=== PATIENT | female | born 1995 ===

== ENCOUNTER 2018-11-01 05:13 | Inpatient (IN) | payer MEDICAID ==
[2018-11-01] MEDS ORDERED: Sodium Chloride 0.9% 10 ML SDV IV PRN (05:14)
[2018-11-01] MEDS ORDERED: Citric Acid/Sodium Citrate Solution 30 ML Cup PO ONE (05:14)
[2018-11-01] MEDS ORDERED: Sodium Chloride 0.9% 10 ML Syringe FLUSH PRN (05:14)
[2018-11-01] MEDS ORDERED: Oxytocin/0.9 % Sodium Chloride 30 UNIT/500 ML BAG IV SCH (05:15)
[2018-11-01] MEDS: Lactated Ringers 1,000 ML IV SCH ×5 (05:49→16:36)
[2018-11-01] MEDS ORDERED: Clindamycin Phosphate in D5W 900 MG in Premix Bag 1 BAG IV ONE ×2 (07:30)
[2018-11-01] MEDS ORDERED: Morphine PF 10 MG/10 ML SDV ONE (07:42)
[2018-11-01] MEDS ORDERED: Acetaminophen/oxyCODONE 325-5 MG Tab PO PRN (07:55)
[2018-11-01] MEDS ORDERED: diphenhydrAMINE 50 MG/ML SDV IVPUSH PRN ×2 (07:55→09:41)
[2018-11-01] MEDS ORDERED: Ondansetron 4 MG/2 ML SDV IVPUSH PRN (07:55)
[2018-11-01] MEDS ORDERED: Naloxone 0.4 MG/ML Syringe IVPUSH PRN (07:55)
--- NOTE | 2018-11-01 07:55 | PCM.PREANE ---
Preanesthetic Assessment - Anesthesia/Transfusion/Family Hx Anesthesia History: No Prior Anesthesia Transfusion History: No Prior Transfusion(s) - Review of Systems General: No Symptoms Pulmonary: No Symptoms Cardiovascular: No Symptoms Gastrointestinal: No Symptoms Neurological: No Symptoms Other: Reports: None - Physical Assessment NPO Status Date: 11/01/18 NPO Status Time: 12:00 Pulse: 78 O2 Sat by Pulse Oximetry: 98 Respiratory Rate: 18 Blood Pressure: 124/68 Height: 1.65 m Weight: 77.111 kg ASA Class: 2 Mental Status: Alert & Oriented x3 Dentition: Reports: Normal Dentition Thyro-Mental Finger Breadths: 3 Mouth Opening Finger Breadths: 3 ROM/Head Extension: Full Lungs: Clear to Auscultation, Normal Respiratory Effort Cardiovascular: Regular Rate, Regular Rhythm - Lab Values: Laboratory Last Values WBC 7.75 K/uL (4.0-11.0) 11/01/18 05:50 RBC 3.49 M/uL (4.30-5.90) L 11/01/18 05:50 Hgb 9.2 g/dL (12.0-16.0) L 11/01/18 05:50 Hct 29.2 % (36.0-46.0) L 11/01/18 05:50 MCV 83.7 fL (80.0-98.0) 11/01/18 05:50 MCH 26.4 pg (27.0-32.0) L 11/01/18 05:50 MCHC 31.5 g/dL (31.0-37.0) 11/01/18 05:50 RDW Std Deviation 41.8 fl (28.0-62.0) 11/01/18 05:50 RDW Coeff of Anny 14 % (11.0-15.0) 11/01/18 05:50 Plt Count 300 K/uL (150-400) 11/01/18 05:50 MPV 10.40 fL (7.40-12.00) 11/01/18 05:50 Nucleated RBC % 0.0 /100WBC 11/01/18 05:50 Nucleated RBCs # 0 K/uL 11/01/18 05:50 Blood Type O POSITIVE 11/01/18 05:50 Antibody Screen NEGATIVE 11/01/18 05:50 - Allergies Allergies/Adverse Reactions: Allergies Allergy/AdvReac Type Severity Reaction Status Date / Time Pork/Porcine Containing Allergy Severe anaphylaxis Verified 11/01/18 06:18 Products Penicillins Allergy Fainting Verified 11/01/18 06:19 - Acknowledgements Anesthesia Type Planned: Spinal Pt an Appropriate Candidate for the Planned Anesthesia: Yes Alternatives and Risks of Anesthesia Discussed w Pt/Guardian: Yes Pt/Guardian Understands and Agrees with Anesthesia Plan: Yes PreAnesthesia Questionnaire Gastrointestinal History: Reports: Other (See Below) Other Gastrointestinal History: some heartburn during OUTREACH ANALYST History: Reports: Musculoskeletal History: Reports: Fracture Other Musculoskeletal History: hx of fx elbow - Infectious Disease History Infectious Disease History: Reports: None - SUBSTANCE USE Smoking Status *Q: Never Smoker Second Hand Smoke Exposure: No Recreational Drug Use History: No - HOME MEDS Home Medications: Home Meds PNV95/Ferrous Fumarate/FA [ Formula Tablet] 1 tab PO DAILY 10/28/18 [ History] - CURRENT (IN HOUSE) MEDS Current Meds: Current Medications Lactated Ringer's (Ringers, Lactated) 1,000 mls @ 500 mls/hr IV BOLUS ANTONI Last Admin: 11/01/18 07:35 Dose: 999 mls/hr Oxytocin/Sodium Chloride (Oxytocin 30 Unit/500 Ml-Ns) 30 unit in 500 mls @ 250 mls/hr IV TITRATE ANTONI Clindamycin Phosphate 900 mg/ (Premix) 50 mls @ 100 mls/hr IV ONETIME ONE Stop: 11/01/18 07:59 Last Admin: 11/01/18 07:39 Dose: 100 mls/hr Gentamicin Sulfate 80 mg/ (Sodium Chloride) 102 mls @ 196.154 mls/hr IV ONETIME ONE Stop: 11/01/18 08:01 Sodium Chloride (Saline Flush) 10 ml FLUSH ASDIRECTED PRN PRN Reason: Keep Vein Open Sodium Chloride (Saline Flush) 2.5 ml FLUSH ASDIRECTED PRN PRN Reason: Keep Vein Open Sodium Chloride (Normal Saline) 10 ml IV ASDIRECTED PRN PRN Reason: IV Use Discontinued Medications Citric Acid/Sodium Citrate (Bicitra Solution) 30 ml PO ONETIME ONE Stop: 11/01/18 05:15 Morphine Sulfate (Duramorph Pf) Confirm Administered Dose 10 mg .ROUTE .STK-MED ONE Stop: 11/01/18 07:43
[2018-11-01] MEDS ORDERED: Ketorolac 30 MG/ML SDV ONE (07:57)
[2018-11-01] MEDS ORDERED: Dexamethasone 4 MG/ML 5 ML MDV ONE (07:57)
[2018-11-01] MEDS ORDERED: Octyl 2-Cyanoacrylate 1 Tube ONE (08:00)
[2018-11-01] MEDS ORDERED: Oxytocin 10 Units/1 ML SDV ONE ×2 (08:36→09:33)
[2018-11-01] MEDS ORDERED: Lanolin 100% Cream 7 GM Tube TOP PRN (09:41)
[2018-11-01] MEDS ORDERED: Bisacodyl 10 MG Supp RECTAL PRN (09:41)
[2018-11-01] MEDS ORDERED: Ketorolac 30 MG/ML SDV IVPUSH SCH (09:45)
--- NOTE | 2018-11-01 09:45 | PCM.OPNOTE ---
- General Post-Op/Procedure Note Date of Surgery/Procedure: 11/01/18 Operative Procedure(s): Primary lower transverse Findings: Live female delivered at 832am , 8/9 weight 4670g Pre Op Diagnosis: Breech presentation Post-Op Diagnosis: Breech Presentation Anesthesia Technique: Epidural Primary Surgeon: Azeb Dasilva Leasing Assistant: Dilma Pathology: placenta Fluid Replacement, Intraop: 3,000 Output, Urine Amount: 225 EBL in mLs: 900 Complications: None Condition: Good Free Text/Narrative:: Intake & Output 10/31/18 11/01/18 11/01/18 22:59 06:59 14:59 Intake Total 1000 Balance 1000
--- NOTE | 2018-11-01 10:34 | PCM.POSTAN ---
POST ANESTHESIA ASSESSMENT - MENTAL STATUS Mental Status: Alert, Oriented - RESPIRATORY Respiratory Status: Respiratory Rate WNL, Airway Patent, O2 Saturation Stable - CARDIOVASCULAR CV Status: Pulse Rate WNL, Blood Pressure Stable (after fluid bolus) - GASTROINTESTINAL GI Status: [place] - POST OP HYDRATION Hydration Status: Adequate & Stable - OBSERVATIONS Free Text/Narrative:: T7 spinal level. will remain recumbant, nurses asked to use nubain for pruritis and/or ponv
[2018-11-01] MEDS ORDERED: Metoclopramide 10 MG/2 ML SDV IVPUSH PRN (11:11)
[2018-11-01] MEDS: Nalbuphine 10 MG/1 ML Vial IVPUSH PRN ×2 (13:19→21:06)
[2018-11-01] MEDS: Ondansetron 4 MG/2 ML SDV IVPUSH PRN ×3 (13:25→22:23)
[2018-11-01] MEDS: Ketorolac 30 MG/ML SDV IVPUSH SCH ×2 (14:12→20:02)
[2018-11-01] MEDS ORDERED: Methylergonovine 0.2 MG/1 ML Amp ONE (15:50)
[2018-11-01] MEDS: Docusate Sodium 100 MG Cap PO SCH (21:18)
[2018-11-01] MEDS: Sodium Chloride 0.9% 2.5 ML Syringe FLUSH PRN ×2 (23:27→23:38)
[2018-11-01] MEDS: fentaNYL 100 MCG/2 ML SDV IVPUSH PRN ×2 (23:27→23:34)
[2018-11-02] MEDS: Ketorolac 30 MG/ML SDV IVPUSH SCH ×3 (02:07→14:37)
[2018-11-02] MEDS: Sodium Chloride 0.9% 2.5 ML Syringe FLUSH PRN ×4 (02:08→05:27)
[2018-11-02] MEDS: Nalbuphine 10 MG/1 ML Vial IVPUSH PRN (04:18)
[2018-11-02] MEDS: fentaNYL 100 MCG/2 ML SDV IVPUSH PRN ×2 (05:09→05:23)
[2018-11-02] MEDS: Lactated Ringers 1,000 ML IV SCH ×2 (05:27→05:30)
--- NOTE | 2018-11-02 08:54 | PCM.PNPP ---
- General Info Date of Service: 11/02/18 Subjective Update: 22yo P1 s/p Primary LTCS POD1 Complains of dizziness , Anemia h/h 6.8/21.3 Normal Urine output , Normal vital signs Had light diet which she tolerated Dobbins in place Functional Status: Reports: Pain Controlled, Tolerating Diet - Review of Systems General: Reports: No Symptoms HEENT: Reports: No Symptoms Pulmonary: Reports: No Symptoms Cardiovascular: Reports: No Symptoms Gastrointestinal: Reports: No Symptoms Genitourinary: Reports: No Symptoms Musculoskeletal: Reports: No Symptoms Skin: Reports: No Symptoms Neurological: Reports: No Symptoms Psychiatric: Reports: No Symptoms - General Info Date of Service: 11/02/18 - Patient Data Vital Signs - Most Recent: Last Vital Signs Temp 36.1 C 11/02/18 04:00 Pulse 73 11/02/18 06:00 Resp 16 11/02/18 06:00 BP 108/71 11/02/18 04:00 Pulse Ox 97 11/02/18 06:00 Weight - Most Recent: 77.111 kg I&O - Last 24 Hours: Intake & Output 11/01/18 11/02/18 11/02/18 22:59 06:59 14:59 Output Total 400 825 Balance -400 -825 Lab Results - Last 24 Hours: Laboratory Results - last 24 hr 11/01/18 11/01/18 11/02/18 Range/Units 05:50 14:10 05:45 Hgb 8.7 L 6.8 L (12.0-16.0) g/dL Hct 26.9 L 21.3 L (36.0-46.0) % Blood Type O POSITIVE Antibody Screen NEGATIVE Crossmatch See Detail Med Orders - Current: Current Medications Bisacodyl (Dulcolax) 10 mg RECTAL ONETIME PRN PRN Reason: Constipation Diphenhydramine HCl (Benadryl) 25 mg IVPUSH Q6H PRN PRN Reason: Itching or Nausea Last Admin: 11/02/18 02:13 Dose: 25 mg Docusate Sodium (Colace) 100 mg PO BID ANTONI Last Admin: 11/01/18 21:18 Dose: Not Given Emollient Ointment (Lansinoh Hpa) 0 gm TOP ASDIRECTED PRN PRN Reason: Sore Nipples Lactated Ringer's (Ringers, Lactated) 1,000 mls @ 500 mls/hr IV BOLUS [facility] Last Admin: 11/01/18 16:36 Dose: 999 mls/hr Oxytocin/Sodium Chloride (Oxytocin 30 Unit/500 Ml-Ns) 30 unit in 500 mls @ 250 mls/hr IV TITRATE [facility] Lactated Ringer's (Ringers, Lactated) 1,000 mls @ 125 mls/hr IV ASDIRECTED [facility] Last Admin: 11/02/18 05:30 Dose: 150 mls/hr Ibuprofen (Motrin) 800 mg PO Q8H PRN PRN Reason: mild pain or fever Ketorolac Tromethamine (Toradol) 30 mg IVPUSH Q6H [facility] Stop: 11/02/18 14:16 Last Admin: 11/02/18 08:15 Dose: 30 mg Metoclopramide HCl (Reglan) 10 mg IVPUSH Q8H PRN PRN Reason: Nausea/Vomiting Last Admin: 11/01/18 11:37 Dose: 10 mg Nalbuphine HCl (Nubain) 5 mg IVPUSH ASDIRECTED PRN PRN Reason: Itching Last Admin: 11/02/18 04:18 Dose: 5 mg Ondansetron HCl (Zofran) 4 mg IVPUSH Q6H PRN PRN Reason: Nausea Ondansetron HCl (Zofran) 4 mg IVPUSH Q4H PRN PRN Reason: Nausea/Vomiting Last Admin: 11/01/18 22:23 Dose: 4 mg Oxycodone/Acetaminophen (Percocet 325-5 Mg) 2 tab PO Q6H PRN PRN Reason: Pain (moderate 4-6) Oxycodone/Acetaminophen (Percocet 325-5 Mg) 1 tab PO Q4H PRN PRN Reason: Pain (moderate 4-6) Oxycodone/Acetaminophen (Percocet 325-5 Mg) 2 tab PO Q4H PRN PRN Reason: Pain (moderate 4-6) Sodium Chloride (Saline Flush) 10 ml FLUSH ASDIRECTED PRN PRN Reason: Keep Vein Open Sodium Chloride (Saline Flush) 2.5 ml FLUSH ASDIRECTED PRN PRN Reason: Keep Vein Open Last Admin: 11/02/18 05:27 Dose: 2.5 ml Sodium Chloride (Normal Saline) 10 ml IV ASDIRECTED PRN PRN Reason: IV Use Discontinued Medications Citric Acid/Sodium Citrate (Bicitra Solution) 30 ml PO ONETIME ONE Stop: 11/01/18 05:15 Last Admin: 11/01/18 23:19 Dose: Not Given Dexamethasone (Dexamethasone) Confirm Administered Dose 20 mg .ROUTE .STK-MED ONE Stop: 11/01/18 07:58 Diphenhydramine HCl (Benadryl) 25 mg IVPUSH Q4H PRN PRN Reason: Itching Stop: 11/02/18 07:55 Fentanyl (Sublimaze) 50 mcg IVPUSH Q1H PRN PRN Reason: Pain (severe 7-10) Last Admin: 11/02/18 05:23 Dose: 50 mcg Clindamycin Phosphate 900 mg/ (Premix) 50 mls @ 100 mls/hr IV ONETIME ONE Stop: 11/01/18 07:59 Last Admin: 11/01/18 07:39 Dose: 100 mls/hr Gentamicin Sulfate 80 mg/ (Sodium Chloride) 102 mls @ 196.154 mls/hr IV ONETIME ONE Stop: 11/01/18 08:01 Last Admin: 11/01/18 23:19 Dose: Not Given Ketorolac Tromethamine (Toradol) Confirm Administered Dose 30 mg .ROUTE .STK- MED ONE Stop: 11/01/18 07:58 Ketorolac Tromethamine (Toradol) 30 mg IVPUSH Q6H [facility] Stop: 11/02/18 09:46 Methylergonovine Maleate (Methergine) Confirm Administered Dose 0.2 mg .ROUTE .STK-MED ONE Stop: 11/01/18 15:51 Morphine Sulfate (Duramorph Pf) Confirm Administered Dose 10 mg .ROUTE .STK-MED ONE Stop: 11/01/18 07:43 Naloxone HCl (Narcan) 0.1 mg IVPUSH ONETIME PRN PRN Reason: Respiratory Depression Stop: 11/02/18 07:55 Octyl Cyanoacrylate (Dermabond Advance) Confirm Administered Dose 1 applic .ROUTE .STK-MED ONE Stop: 11/01/18 08:01 Oxytocin (Pitocin) Confirm Administered Dose 30 unit .ROUTE .STK-MED ONE Stop: 11/01/18 08:37 Oxytocin (Pitocin) Confirm Administered Dose 30 unit .ROUTE .STK-MED ONE Stop: 11/01/18 09:34 - Interaction Support Person: - Recovery Exam Fundal Tone: Firm Fundal Level: 1 Fingerbreadths Below Umbilicus Fundal Placement: Midline Lochia Amount: Scant Lochia Color: Rubra/Red Perineum Description: Intact, Minimal Bruising/Swelling Episiotomy/Laceration: None Bladder Status: Indwelling Catheter in Place Urinary Elimination: Indwelling Catheter - Exam General: Alert, Lethargic HEENT: Pupils Equal Neck: Supple Lungs: Clear to Auscultation Cardiovascular: Regular Rate GI/Abdominal Exam: Normal Bowel Sounds Extremities: Normal Inspection Wound/Incisions: Dressing Dry and Intact Neurological: No New Focal Deficit Psy/Mental Status: Alert - Problem List & Annotations (1) delivery delivered SNOMED Code(s): 550114680 Code(s): O82 - ENCOUNTER FOR DELIVERY WITHOUT INDICATION Status: Acute Current Visit: Yes - Problem List Review Problem List Initiated/Reviewed/Updated: Yes - My Orders Last 24 Hours: My Active Orders 11/01/18 09:41 Ambulate [RC] PER UNIT ROUTINE Antiembolic Devices [RC] PER UNIT ROUTINE Communication Order [RC] PER UNIT ROUTINE Communication Order [RC] PER UNIT ROUTINE Communication Order [RC] Per Unit Routine May Shower [RC] ASDIRECTED Notify Provider Intake and Out [RC] ASDIRECTED Notify Provider Vital Signs [RC] ASDIRECTED RT Incentive Spirometry [RC] Q2HWA Acetaminophen/oxyCODONE [Percocet 325-5 MG] 1 tab PO Q4H PRN Acetaminophen/oxyCODONE [Percocet 325-5 MG] 2 tab PO Q4H PRN Bisacodyl [Dulcolax] 10 mg RECTAL ONETIME PRN Ibuprofen [Motrin] 800 mg PO Q8H PRN Lanolin [Lansinoh HPA] See Dose Instructions TOP ASDIRECTED PRN Ondansetron [Zofran] 4 mg IVPUSH Q4H PRN diphenhydrAMINE [Benadryl] 25 mg IVPUSH Q6H PRN Assess Lochia [WOMSER] Per Unit Routine Assess Uterine Involution [WOMSER] Per Unit Routine Breast Pump [WOMSER] Per Unit Routine Peripheral IV Discontinue [OM.PC] Routine Sequential Compression Device [OM.PC] Per Unit Routine 11/01/18 09:45 Lactated Ringers [Ringers, Lactated] 1,000 ml IV ASDIRECTED 11/01/18 11:11 Metoclopramide [Reglan] 10 mg IVPUSH Q8H PRN 11/01/18 14:15 Ketorolac [Toradol] 30 mg IVPUSH Q6H 11/01/18 21:00 Docusate Sodium [Colace] 100 mg PO BID 11/02/18 07:12 Transfuse RBC [Transfuse Red Blood Cells] [COMM] Stat 11/02/18 07:15 RED BLOOD CELLS LP [BBK] Routine - Assessment Assessment:: 22yo P2 s/p LTCS anemia , to recieve 3UPRBC pending - Plan Plan:: Transfuse 3UPRBC Venodynes Can remove dobbins after transfusion Posttransfusion CBC tomorrow
[2018-11-02] MEDS: Acetaminophen/oxyCODONE 325-5 MG Tab PO PRN ×3 (09:18→21:04)
[2018-11-02] MEDS: Docusate Sodium 100 MG Cap PO SCH ×2 (09:21→21:05)
--- NOTE | 2018-11-02 10:12 | PCM48HPAN ---
Post Anesthesia Note - EVALUATION WITHIN 48HRS OF ANESTHETIC Vital Signs in Normal Range: Yes Patient Participated in Evaluation: Yes Respiratory Function Stable: Yes Airway Patent: Yes Cardiovascular Function Stable: Yes Hydration Status Stable: Yes Pain Control Satisfactory: Yes Nausea and Vomiting Control Satisfactory: Yes Mental Status Recovered: Yes Pulse Rate: 78 Resp Rate: 15 Temperature: 97.7 F Blood Pressure: 124/68
--- NOTE | 2018-11-02 10:57 | OR ---
SURGEON: LINDA WILLOUGHBY DATE OF PROCEDURE: 11/01/2018 PREOPERATIVE DIAGNOSIS: 22-year-old, G1, P0, at 39 weeks with breech presentation. POSTOPERATIVE DIAGNOSIS: 22-year-old, G1, P0, at 39 weeks with breech presentation. PROCEDURE: Primary lower segment transverse section. IV FLUIDS: 3000. ESTIMATED BLOOD LOSS: 900. URINE OUTPUT: 225. NOTES AND FINDING: A live female delivered in breech position at 8:32am. score was 8 and 9. Weight was 4670 g. BRIEF HISTORY: She was 22, G1, P0, who had a low-risk care. She had GCT negative. However, she had macrosomia with EFW greater than 95%. The patient was offered ECV versus primary . The patient wanted the primary and decided to proceed. PROCEDURE IN DETAIL: The patient was taken to the operating room where spinal anesthesia was performed without difficulty. She was prepared and draped in the dorsal supine position with a leftward tilt. A Pfannenstiel skin incision was made with a scalpel and carried down to the fascia with the Bovie. The fascia was incised and extended laterally. The fascia was from the rectus muscles superiorly and inferiorly. Also, the rectus muscle was in the midline down to the level of the pubic symphysis. Peritoneum was entered in bluntly. The Cedric O retractor was placed to expose the lower uterine segment. The bladder flap was created. The lower uterine incision was made and was extended manually. The fetus was in breech presentation, was delivered by breech delivery all the way to the shoulder, then it was rotated. Anterior arm was delivered, then the posterior arm was delivered, and the head was delivered without any difficulty. The cord was clamped and cut. The infant was handed over to the awaiting med care manager. Then, the placenta was delivered without any difficulty. The uterus was cleaned with moist laparotomy sponges. The uterus was sutured in 2 layers, first layer with 0 Vicryl and second layer with 0 Monocryl. The gutters were cleaned with moist laparotomy sponges. The Cedric retractor was removed. The uterine incision was inspected again, was noted to be hemostatic. Peritoneum was closed. Rectus muscle was apposed also. The fascia was closed with 0 Vicryl and the skin was closed with 3-0 Monocryl on a Samson needle. All instrument and pad counts were correct x2. The patient tolerated the procedure well and was taken to the recovery room in stable condition. TRISTAN KUMARI /[id number] MTDD
[2018-11-02] MEDS: Ibuprofen 800 MG Tab PO PRN (22:50)
[2018-11-03] MEDS: Acetaminophen/oxyCODONE 325-5 MG Tab PO PRN ×5 (01:00→22:19)
[2018-11-03] MEDS: Ibuprofen 800 MG Tab PO PRN (06:51)
--- NOTE | 2018-11-03 16:56 | PCM.PNPP ---
- General Info Date of Service: 11/03/18 Subjective Update: 22yo P1 s/p Primary LTCS with aneamia s/p 3UPRBC Posttransfusion H/H 9.5/29.5 Patient feels much better now , She is ambulating , voiding , tolerating regular diet and breastfeedng Functional Status: Reports: Pain Controlled, Tolerating Diet, Ambulating, Urinating - Review of Systems General: Reports: No Symptoms HEENT: Reports: No Symptoms Pulmonary: Reports: No Symptoms Cardiovascular: Reports: No Symptoms Gastrointestinal: Reports: No Symptoms Genitourinary: Reports: No Symptoms Musculoskeletal: Reports: No Symptoms Skin: Reports: No Symptoms Neurological: Reports: No Symptoms Psychiatric: Reports: No Symptoms - General Info Date of Service: 11/03/18 - Patient Data Vital Signs - Most Recent: Last Vital Signs Temp 36.4 C 11/03/18 07:07 Pulse 63 11/03/18 07:07 Resp 16 11/03/18 07:07 BP 104/56 L 11/03/18 07:07 Pulse Ox 98 11/03/18 07:07 Weight - Most Recent: 77.111 kg I&O - Last 24 Hours: Intake & Output 11/03/18 11/03/18 11/03/18 06:59 14:59 22:59 Intake Total 1000 Output Total 1200 Balance -200 Lab Results - Last 24 Hours: Laboratory Results - last 24 hr 11/03/18 Range/Units 06:02 WBC 8.76 (4.0-11.0) K/uL RBC 3.52 L (4.30-5.90) M/uL Hgb 9.5 L (12.0-16.0) g/dL Hct 29.5 L (36.0-46.0) % MCV 83.8 (80.0-98.0) fL MCH 27.0 (27.0-32.0) pg MCHC 32.2 (31.0-37.0) g/dL RDW Std Deviation 43.6 (28.0-62.0) fl RDW Coeff of Anny 14 (11.0-15.0) % Plt Count 231 (150-400) K/uL MPV 10.40 (7.40-12.00) fL Neut % (Auto) 62.1 (48.0-80.0) % Lymph % (Auto) 25.0 (16.0-40.0) % Nolan % (Auto) 11.8 (0.0-15.0) % Eos % (Auto) 0.9 (0.0-7.0) % Baso % (Auto) 0.2 (0.0-1.5) % Neut # (Auto) 5.4 (1.4-5.7) K/uL Lymph # (Auto) 2.2 (0.6-2.4) K/uL Nolan # (Auto) 1.0 H (0.0-0.8) K/uL Eos # (Auto) 0.1 (0.0-0.7) K/uL Baso # (Auto) 0.0 (0.0-0.1) K/uL Nucleated RBC % 0.0 /100WBC Nucleated RBCs # 0 K/uL Med Orders - Current: Current Medications Bisacodyl (Dulcolax) 10 mg RECTAL ONETIME PRN PRN Reason: Constipation Diphenhydramine HCl (Benadryl) 25 mg IVPUSH Q6H PRN PRN Reason: Itching or Nausea Last Admin: 11/02/18 02:13 Dose: 25 mg Docusate Sodium (Colace) 100 mg PO BID [facility] Last Admin: 11/02/18 21:05 Dose: 100 mg Emollient Ointment (Lansinoh Hpa) 0 gm TOP ASDIRECTED PRN PRN Reason: Sore Nipples Lactated Ringer's (Ringers, Lactated) 1,000 mls @ 500 mls/hr IV BOLUS [facility] Last Admin: 11/01/18 16:36 Dose: 999 mls/hr Oxytocin/Sodium Chloride (Oxytocin 30 Unit/500 Ml-Ns) 30 unit in 500 mls @ 250 mls/hr IV TITRATE [facility] Lactated Ringer's (Ringers, Lactated) 1,000 mls @ 125 mls/hr IV ASDIRECTED [facility] Last Admin: 11/02/18 05:30 Dose: 150 mls/hr Ibuprofen (Motrin) 800 mg PO Q8H PRN PRN Reason: mild pain or fever Last Admin: 11/03/18 06:51 Dose: 800 mg Metoclopramide HCl (Reglan) 10 mg IVPUSH Q8H PRN PRN Reason: Nausea/Vomiting Last Admin: 11/01/18 11:37 Dose: 10 mg Nalbuphine HCl (Nubain) 5 mg IVPUSH ASDIRECTED PRN PRN Reason: Itching Last Admin: 11/02/18 04:18 Dose: 5 mg Ondansetron HCl (Zofran) 4 mg IVPUSH Q6H PRN PRN Reason: Nausea Ondansetron HCl (Zofran) 4 mg IVPUSH Q4H PRN PRN Reason: Nausea/Vomiting Last Admin: 11/01/18 22:23 Dose: 4 mg Oxycodone/Acetaminophen (Percocet 325-5 Mg) 2 tab PO Q6H PRN PRN Reason: Pain (moderate 4-6) Last Admin: 11/02/18 13:32 Dose: 2 tab Oxycodone/Acetaminophen (Percocet 325-5 Mg) 1 tab PO Q4H PRN PRN Reason: Pain (moderate 4-6) Last Admin: 11/02/18 09:18 Dose: 1 tab Oxycodone/Acetaminophen (Percocet 325-5 Mg) 2 tab PO Q4H PRN PRN Reason: Pain (moderate 4-6) Last Admin: 11/03/18 12:59 Dose: 2 tab Sodium Chloride (Saline Flush) 10 ml FLUSH ASDIRECTED PRN PRN Reason: Keep Vein Open Sodium Chloride (Saline Flush) 2.5 ml FLUSH ASDIRECTED PRN PRN Reason: Keep Vein Open Last Admin: 11/02/18 05:27 Dose: 2.5 ml Sodium Chloride (Normal Saline) 10 ml IV ASDIRECTED PRN PRN Reason: IV Use Discontinued Medications Citric Acid/Sodium Citrate (Bicitra Solution) 30 ml PO ONETIME ONE Stop: 11/01/18 05:15 Last Admin: 11/01/18 23:19 Dose: Not Given Dexamethasone (Dexamethasone) Confirm Administered Dose 20 mg .ROUTE .STK-MED ONE Stop: 11/01/18 07:58 Diphenhydramine HCl (Benadryl) 25 mg IVPUSH Q4H PRN PRN Reason: Itching Stop: 11/02/18 07:55 Fentanyl (Sublimaze) 50 mcg IVPUSH Q1H PRN PRN Reason: Pain (severe 7-10) Last Admin: 11/02/18 05:23 Dose: 50 mcg Clindamycin Phosphate 900 mg/ (Premix) 50 mls @ 100 mls/hr IV ONETIME ONE Stop: 11/01/18 07:59 Last Admin: 11/01/18 07:39 Dose: 100 mls/hr Gentamicin Sulfate 80 mg/ (Sodium Chloride) 102 mls @ 196.154 mls/hr IV ONETIME ONE Stop: 11/01/18 08:01 Last Admin: 11/01/18 23:19 Dose: Not Given Ketorolac Tromethamine (Toradol) Confirm Administered Dose 30 mg .ROUTE .STK- MED ONE Stop: 11/01/18 07:58 Ketorolac Tromethamine (Toradol) 30 mg IVPUSH Q6H [facility] Stop: 11/02/18 09:46 Ketorolac Tromethamine (Toradol) 30 mg IVPUSH Q6H [facility] Stop: 11/02/18 14:16 Last Admin: 11/02/18 14:37 Dose: Not Given Methylergonovine Maleate (Methergine) Confirm Administered Dose 0.2 mg .ROUTE .STK-MED ONE Stop: 11/01/18 15:51 Morphine Sulfate (Duramorph Pf) Confirm Administered Dose 10 mg .ROUTE .STK-MED ONE Stop: 11/01/18 07:43 Naloxone HCl (Narcan) 0.1 mg IVPUSH ONETIME PRN PRN Reason: Respiratory Depression Stop: 11/02/18 07:55 Octyl Cyanoacrylate (Dermabond Advance) Confirm Administered Dose 1 applic .ROUTE .STK-MED ONE Stop: 11/01/18 08:01 Oxytocin (Pitocin) Confirm Administered Dose 30 unit .ROUTE .STK-MED ONE Stop: 11/01/18 08:37 Oxytocin (Pitocin) Confirm Administered Dose 30 unit .ROUTE .STK-MED ONE Stop: 11/01/18 09:34 - Interaction Support Person: - Recovery Exam Fundal Tone: Firm Fundal Level: 1 Fingerbreadths Below Umbilicus Fundal Placement: Midline Lochia Amount: Scant Lochia Color: Rubra/Red Perineum Description: Edematous Episiotomy/Laceration: None Bladder Status: Voiding Urinary Elimination: Voided Other Urinary Elimination, : has not voided since cath removal at 1855 - Exam General: Alert HEENT: Pupils Equal Neck: Supple Lungs: Clear to Auscultation Cardiovascular: Regular Rate, Regular Rhythm GI/Abdominal Exam: Normal Bowel Sounds Extremities: Normal Inspection Wound/Incisions: Dressing Dry and Intact Neurological: No New Focal Deficit Psy/Mental Status: Alert, Normal Affect - Problem List & Annotations (1) delivery delivered SNOMED Code(s): 502882181 Code(s): O82 - ENCOUNTER FOR DELIVERY WITHOUT INDICATION Status: Acute Current Visit: Yes - Problem List Review Problem List Initiated/Reviewed/Updated: Yes - Assessment Assessment:: 22yo P1 s/p Primary LTCS with aneamia s/p 3UPRBC h/h 9.5/29.5 - Plan Plan:: Pain control as needed Venodyne in Bed Encourage more ambulation Incentive spirometry Discharge home tomorrow
[2018-11-03] MEDS: Docusate Sodium 100 MG Cap PO SCH (22:19)
[2018-11-04] MEDS: Acetaminophen/oxyCODONE 325-5 MG Tab PO PRN ×3 (03:43→12:41)
[2018-11-04] MEDS: Ibuprofen 800 MG Tab PO PRN (08:16)
[2018-11-04] MEDS ORDERED: Iron Polysaccharides Complex 150 MG Cap PO SCH (09:00)
--- NOTE | 2018-11-04 09:04 | PCM.PNPP ---
- General Info Date of Service: 11/04/18 Subjective Update: 22yo P1 s/p Primary LTCS with aneamia s/p 3UPRBC , POD3 Posttransfusion H/H 9.5/29.5 Patient feels much better now , She is ambulating , voiding , tolerating regular diet and breastfeedng Functional Status: Reports: Pain Controlled, Tolerating Diet, Ambulating, Urinating - Review of Systems General: Reports: No Symptoms HEENT: Reports: No Symptoms Pulmonary: Reports: No Symptoms Cardiovascular: Reports: No Symptoms Gastrointestinal: Reports: No Symptoms Genitourinary: Reports: No Symptoms Musculoskeletal: Reports: No Symptoms Skin: Reports: No Symptoms Neurological: Reports: No Symptoms - General Info Date of Service: 11/04/18 - Patient Data Vital Signs - Most Recent: Last Vital Signs Temp 36.3 C 11/04/18 07:23 Pulse 71 11/04/18 07:23 Resp 16 11/04/18 07:23 BP 116/73 11/04/18 07:23 Pulse Ox 96 11/04/18 07:23 Weight - Most Recent: 77.111 kg Lab Results - Last 24 Hours: Laboratory Results - last 24 hr 11/03/18 Range/Units 18:46 Hgb 9.4 L (12.0-16.0) g/dL Hct 28.9 L (36.0-46.0) % Med Orders - Current: Current Medications Bisacodyl (Dulcolax) 10 mg RECTAL ONETIME PRN PRN Reason: Constipation Diphenhydramine HCl (Benadryl) 25 mg IVPUSH Q6H PRN PRN Reason: Itching or Nausea Last Admin: 11/02/18 02:13 Dose: 25 mg Docusate Sodium (Colace) 100 mg PO BID ANTONI Last Admin: 11/03/18 22:19 Dose: 100 mg Emollient Ointment (Lansinoh Hpa) 0 gm TOP ASDIRECTED PRN PRN Reason: Sore Nipples Lactated Ringer's (Ringers, Lactated) 1,000 mls @ 500 mls/hr IV BOLUS [facility] Last Admin: 11/01/18 16:36 Dose: 999 mls/hr Oxytocin/Sodium Chloride (Oxytocin 30 Unit/500 Ml-Ns) 30 unit in 500 mls @ 250 mls/hr IV TITRATE [facility] Lactated Ringer's (Ringers, Lactated) 1,000 mls @ 125 mls/hr IV ASDIRECTED ANTONI Last Admin: 11/02/18 05:30 Dose: 150 mls/hr Ibuprofen (Motrin) 800 mg PO Q8H PRN PRN Reason: mild pain or fever Last Admin: 11/04/18 08:16 Dose: 800 mg Metoclopramide HCl (Reglan) 10 mg IVPUSH Q8H PRN PRN Reason: Nausea/Vomiting Last Admin: 11/01/18 11:37 Dose: 10 mg Nalbuphine HCl (Nubain) 5 mg IVPUSH ASDIRECTED PRN PRN Reason: Itching Last Admin: 11/02/18 04:18 Dose: 5 mg Ondansetron HCl (Zofran) 4 mg IVPUSH Q6H PRN PRN Reason: Nausea Ondansetron HCl (Zofran) 4 mg IVPUSH Q4H PRN PRN Reason: Nausea/Vomiting Last Admin: 11/01/18 22:23 Dose: 4 mg Oxycodone/Acetaminophen (Percocet 325-5 Mg) 2 tab PO Q6H PRN PRN Reason: Pain (moderate 4-6) Last Admin: 11/02/18 13:32 Dose: 2 tab Oxycodone/Acetaminophen (Percocet 325-5 Mg) 1 tab PO Q4H PRN PRN Reason: Pain (moderate 4-6) Last Admin: 11/02/18 09:18 Dose: 1 tab Oxycodone/Acetaminophen (Percocet 325-5 Mg) 2 tab PO Q4H PRN PRN Reason: Pain (moderate 4-6) Last Admin: 11/04/18 08:18 Dose: 2 tab Polysaccharide Iron Complex (Ferrex 150) 150 mg PO DAILY ANTONI Sodium Chloride (Saline Flush) 10 ml FLUSH ASDIRECTED PRN PRN Reason: Keep Vein Open Sodium Chloride (Saline Flush) 2.5 ml FLUSH ASDIRECTED PRN PRN Reason: Keep Vein Open Last Admin: 11/02/18 05:27 Dose: 2.5 ml Sodium Chloride (Normal Saline) 10 ml IV ASDIRECTED PRN PRN Reason: IV Use Discontinued Medications Citric Acid/Sodium Citrate (Bicitra Solution) 30 ml PO ONETIME ONE Stop: 11/01/18 05:15 Last Admin: 11/01/18 23:19 Dose: Not Given Dexamethasone (Dexamethasone) Confirm Administered Dose 20 mg .ROUTE .STK-MED ONE Stop: 11/01/18 07:58 Diphenhydramine HCl (Benadryl) 25 mg IVPUSH Q4H PRN PRN Reason: Itching Stop: 11/02/18 07:55 Fentanyl (Sublimaze) 50 mcg IVPUSH Q1H PRN PRN Reason: Pain (severe 7-10) Last Admin: 11/02/18 05:23 Dose: 50 mcg Clindamycin Phosphate 900 mg/ (Premix) 50 mls @ 100 mls/hr IV ONETIME ONE Stop: 11/01/18 07:59 Last Admin: 11/01/18 07:39 Dose: 100 mls/hr Gentamicin Sulfate 80 mg/ (Sodium Chloride) 102 mls @ 196.154 mls/hr IV ONETIME ONE Stop: 11/01/18 08:01 Last Admin: 11/01/18 23:19 Dose: Not Given Ketorolac Tromethamine (Toradol) Confirm Administered Dose 30 mg .ROUTE .STK- MED ONE Stop: 11/01/18 07:58 Ketorolac Tromethamine (Toradol) 30 mg IVPUSH Q6H [facility] Stop: 11/02/18 09:46 Ketorolac Tromethamine (Toradol) 30 mg IVPUSH Q6H [facility] Stop: 11/02/18 14:16 Last Admin: 11/02/18 14:37 Dose: Not Given Methylergonovine Maleate (Methergine) Confirm Administered Dose 0.2 mg .ROUTE .STK-MED ONE Stop: 11/01/18 15:51 Morphine Sulfate (Duramorph Pf) Confirm Administered Dose 10 mg .ROUTE .STK-MED ONE Stop: 11/01/18 07:43 Naloxone HCl (Narcan) 0.1 mg IVPUSH ONETIME PRN PRN Reason: Respiratory Depression Stop: 11/02/18 07:55 Octyl Cyanoacrylate (Dermabond Advance) Confirm Administered Dose 1 applic .ROUTE .STK-MED ONE Stop: 11/01/18 08:01 Oxytocin (Pitocin) Confirm Administered Dose 30 unit .ROUTE .STK-MED ONE Stop: 11/01/18 08:37 Oxytocin (Pitocin) Confirm Administered Dose 30 unit .ROUTE .STK-MED ONE Stop: 11/01/18 09:34 - Interaction Support Person: - Recovery Exam Fundal Tone: Firm Fundal Level: 1 Fingerbreadths Below Umbilicus Fundal Placement: Midline Lochia Amount: Scant Lochia Color: Rubra/Red Perineum Description: Edematous Episiotomy/Laceration: None Bladder Status: Voiding Urinary Elimination: Voided Other Urinary Elimination, : has not voided since cath removal at 1855 - Exam General: Alert, Oriented HEENT: Pupils Equal Neck: Supple Lungs: Clear to Auscultation Cardiovascular: Regular Rate, Regular Rhythm GI/Abdominal Exam: Normal Bowel Sounds Extremities: Normal Inspection Skin: Warm Neurological: No New Focal Deficit Psy/Mental Status: Alert - Problem List & Annotations (1) delivery delivered SNOMED Code(s): 617003695 Code(s): O82 - ENCOUNTER FOR DELIVERY WITHOUT INDICATION Status: Acute Current Visit: Yes - Problem List Review Problem List Initiated/Reviewed/Updated: Yes - My Orders Last 24 Hours: My Active Orders 11/04/18 09:00 Iron Polysaccharides Complex [Ferrex 150] 150 mg PO DAILY - Assessment Assessment:: 22yo P1 s/p Primary LTCS with aneamia s/p 3UPRBC h/h 9.5/29.5 POD3 - Plan Plan:: Discharge home today
[2018-11-04] MEDS: Docusate Sodium 100 MG Cap PO SCH (09:44)
== END 2018-11-04 14:07 | disposition home or self-care (01) | DRG 788 ==
LOC: MW.OB 05:13
PROVIDERS: ADMIT Obstetrics & Gynecology; ATTEND Obstetrics & Gynecology
PROC: 10D00Z1 Extraction of Products of Conception, Low, Open Approach (ICD-10-PCS; principal; 2018-11-01)
PROC: 30233N1 Transfusion of Nonautologous Red Blood Cells into Peripheral Vein, Percutaneous Approach (ICD-10-PCS; 2018-11-01)
DX: O32.1XX0 Maternal care for breech presentation, not applicable or unspecified (principal); O36.63X0 Maternal care for excessive fetal growth, third trimester, not applicable or unspecified; D64.9 Anemia, unspecified; O90.81 Anemia of the puerperium; Z3A.39 39 weeks gestation of pregnancy; Z37.0 Single live birth
CPT/HCPCS: 36415; 36430; 59025; 85014; 85018; 85025; 85027; 86850; 86900; 86901; 86920; 86921; 86922; 88307; A4217; A9270-GY; J1100; J1200; J1885; J2210; J2270; J2300; J2405; J2590; J2765; J3010; J3490; J7120; P9016